=== PATIENT | male | born 1945 | race Caucasian/White ===

== ENCOUNTER 2017-06-29 12:10 | Emergency (ER) | payer MEDICARE ==
[~2017-06-29] VITALS: Ht 182.9 cm; Wt 79.4 kg
[~2017-06-29 12:10] MED LIST: ASPIR 8181 MG PO; GLIPIZIDE ER5 MG PO; NIFEDICAL XL30 MG PO; SIMVASTATIN10 MG PO; TEMAZEPAM15 MG PO; TRAMADOL HCL100 MG PO
[2017-06-29] MEDS ORDERED: CIPROFLOXACIN250 MG PO (12:23)
[2017-06-29] MEDS ORDERED: ARICEPT5 MG PO (12:23)
[2017-06-29] MEDS ORDERED: POTASSIUM CHLO20 ME1 PO (12:23)
[2017-06-29] MEDS ORDERED: RISPERIDONE0.5 MG PO (12:23)
[2017-06-29] MEDS ORDERED: QUETIAPINE FUMA25 MG PO (12:23)
[2017-06-29] MEDS ORDERED: NAMENDA10 MG PO (12:23)
[2017-06-29 13:31] LABS: BASOPHILS # (AUTO) 0.1 (0.0-0.1); BASOPHILS % 0.6 % (0.0-1.0); EOSINOPHILS # (AUTO) 0.2 (0.0-0.4); EOSINOPHILS % 1.9 % (0.0-6.0); HEMATOCRIT 44.1 % (38.2-49.6); HEMOGLOBIN 14.4 g/dL (14.0-18.0); LYMPHOCYTES # (AUTO) 2.1 (1.0-3.2); MEAN CORPUSCULAR HGB CONC 32.7 g/dL (31-35); MEAN CORPUSCULAR VOLUME 85.8 fL (81-99); MONOCYTES # (AUTO) 0.8 (0.2-0.8); MONOCYTES % 7.8 % (4.4-11.3); NEUTROPHILS # (AUTO) 6.9 (2.1-6.9); NEUTROPHILS % 67.8 % (38.7-80.0); PLATELET COUNT 152 x10e3/uL (140-360); RED BLOOD COUNT 5.14 x10e6/uL (4.3-5.7)
[2017-06-29 13:48] LABS: ANION GAP 9.6 mmol/L (8-16); BLOOD UREA NITROGEN 14 mg/dL (7-26); BUN/CREATININE RATIO 13 (6-25); CALCIUM 9.1 mg/dL (8.4-10.2); CARBON DIOXIDE 29 mmol/L (22-29); CHLORIDE 104 mmol/L (98-107); CREATININE, SERUM 1.12 mg/dL (0.72-1.25); EST GLOMERULAR FILTRATION RATE > 60 ML/MIN (60-); GLUCOSE 180 mg/dL (74-118); POTASSIUM 3.6 mmol/L (3.5-5.1); SODIUM 139 mmol/L (136-145)
[2017-06-29 14:14] LABS: CREATINE KINASE MB 0.9 ng/mL (0.00-5.00); TROPONIN I 0.02 ng/mL (0-0.300)
[2017-06-29 16:54] VITALS: BP 114/82
== END 2017-06-29 17:15 | disposition home or self-care (01) ==
LOC: ER 12:10
DX: E87.6 Hypokalemia (principal); F03.90 Unspecified dementia, unspecified severity, without behavioral disturbance, psychotic disturbance, mood disturbance, and anxiety; E11.65 Type 2 diabetes mellitus with hyperglycemia
CPT/HCPCS: 36415; 80048; 82550; 82553; 84484; 85025; 99283